=== PATIENT | female | born 1970 | race Caucasian/White ===

== ENCOUNTER 2021-12-04 10:31 | Emergency (ER) | payer MEDICAID, SELFPAY ==
[2021-12-04 10:31] VITALS: BP 121/87; PULSE 87; RESP 18; TEMP 36.9; O2SAT 97; BMI 43.8
--- NOTE | 2021-12-04 10:58 | EDS_ITS ---
HPI History of Present Illness Chief Complaint: Back Informant: patient Narrative Narrative: Patient states that on Monday she was in a grocery store holding onto a cart. She twisted and got pain that started in her back and shot down the back of her right leg. She states she did not fall. She caught herself on the cart. But ever since then she has had pain. She was seen earlier in the week at [facility]. She was given [place]. She states it helped a little bit with the pain but it comes right back. She has never had bowel or bladder dysfunction. She has no weakness although sitting up causes a lot of pain and is therefore hard. She went for a drive yesterday. After sitting in the car and driving she had pain shooting down her right leg. She cannot tell me where in the leg it went she cannot tell me how far down it went. Occasionally she still gets shooting pain but again she is not sure exactly where in the right leg it goes. She is not getting weakness or numbness. She states if she lays on her back she has no pain in the back or the leg. But it is worse if she is up walking around. She has not had any swelling. No recent fevers chills. No history of cancer or chemotherapy. No recent infections or antibiotic use. No dental pain. No history of significant prior back problems or back surgeries. [facility] Medical History Cholecystectomy planned Graves disease Hyperthyroidism Renal tubular acidosis Home Medications cholecalciferol (vitamin D3) [Vitamin D3] 50 mcg PO DAILY 12/04/21 [History Last Taken Unknown] [id number] [Sinus Allergy] 1 cap PO DAILY 12/04/21 [History Last Taken Unknown] cyclobenzaprine 10 mg PO BID PRN #10 tab 12/04/21 [Rx Last Taken Unknown] hydroxychloroquine 200 mg PO DAILY 12/04/21 [History Last Taken Unknown] levothyroxine 125 mcg PO DAILY 12/04/21 [History Last Taken Unknown] oxycodone-acetaminophen [Percocet] 1 tab PO Q4H PRN 12/04/21 [History Last Taken Unknown] oxycodone-acetaminophen [Percocet] 1 tab PO Q6H PRN 3 Days #10 tab 12/04/21 [Rx Last Taken Unknown] prednisone 60 mg PO DAILY #15 tab 12/04/21 [Rx Last Taken Unknown] sodium bicarbonate 1,300 mg PO DAILY 12/04/21 [History Last Taken Unknown] Allergy/AdvReac Type Severity Reaction Status Date / Time aspirin Allergy Anaphylaxis Verified 12/04/21 10:37 ciprofloxacin [From Cipro] Allergy Hives Verified 12/04/21 10:37 sulfamethoxazole Allergy Other Verified 12/04/21 10:37 [From Bactrim] trimethoprim [From Bactrim] Allergy Other Verified 12/04/21 10:37 meloxicam AdvReac Other Verified 12/04/21 10:44 Surgical History History of carpal tunnel surgery History of ear surgery History of partial hysterectomy Hx of section Social History Smoking Status: Current every day smoker tobacco type: cigarettes ROS ROS ED Constitutional Constitutional ED: Denies chills, fever(s) or sweats ENT ENT ED: Denies rhinorrhea or sore throat Cardiovascular Cardiovascular: Denies chest pain or palpitations Respiratory/Chest Respiratory/Chest: Denies dyspnea Gastrointestinal Gastrointestinal: Denies abdominal pain, constipation, diarrhea, melena, nausea or vomiting Genitourinary Genitourinary ED: Denies dysuria, hematuria or urinary frequency Musculoskeletal Musculoskeletal: Reports back pain; Denies neck pain Integumentary Denies abscess or rash Neurologic Neurologic: Reports other Details: See history of present illness regarding radicular pain on the right. ; Denies weakness Psychiatric Psychiatric: Denies depression Endocrine Endocrinology: Denies polydipsia or polyuria Hematologic/Lymphatic Hematologic/Lymphatic: Denies easy bleeding or easy bruising Allergic/Immunologic Allergic/Immunologic ED: Denies urticaria EXAM Physical Exam Const Vital Signs: 12/04/21 10:31 Temperature 98.5 F Temperature Source Oral Pulse Rate 87 Respiratory Rate 18 Blood Pressure 121/87 H Blood Pressure Mean 98 Pulse Ox 97 Oxygen Delivery Method Room Air Positive well nourished, well developed and obese Constitutional Narrative: Patient is lying comfortably in bed. She states she has almost no pain when she is laying back in bed. General Appearance ED: well developed and NAD Nutritional Appearance: obese HEENT Negative for trauma Eyes General Eye ED: Negative for pale conjunctiva or scleral icterus Neck no JVD Resp normal respiratory effort and clear to auscultation bilaterally Cardio regular rate and regular rhythm GI normal to inspection, nondistended, normoactive bowel sounds, soft to palpation and non-tender Back/Spine Back/Spine Narrative: Mild nonfocal lower lumbar tenderness. She does have some tenderness along the right buttock area/sciatic notch. Extremity normal to inspection General Extremety ED: Negative for edema or tenderness General Extremity: Negative for edema Neuro oriented x3 Neuro Narrative: No gross sensory or motor deficit. It is painful for her to move and lift either leg. But it hurts in her back. Her sensation is intact. There is no sign of weakness of quadriceps or calf muscles. Sensorium / Orientation: alert Skin no rashes or lesions noted MDM MDM MDM Narrative Medical decision making narrative: I explained to the patient that she really has no red flags of back pain. There is really no indication for x-rays. I will give her meds for pain. I will give her muscle relaxants. Because she has been trying other meds for 5 days without benefit I will try a course of steroids. I explained that this is not a quick fix. This will take several days to start turning around. She should maintain mobility. She should not start twisting her range of motion yet. If she develops weakness bowel or bladder dysfunction, fevers or other concerning findings she should return. Discharge Plan Triage Chief Complaint: Back ED Provider: Peña Chen Dx/Rx/DC Orders Clinical Impression: Acute lumbar myofascial strain, Acute lumbar radiculopathy Instructions: ED Back Sprain/Strain Prescriptions: New prednisone 20 MG tablet 60 mg PO DAILY Qty: 15 RF: 0 oxycodone-acetaminophen [Percocet] 5-325 mg tablet 1 tab PO Q6H PRN (Reason: pain) 3 Days Qty: 10 RF: 0 cyclobenzaprine 10 mg tablet 10 mg PO BID PRN (Reason: muscle spasm) Qty: 10 RF: 0 No Action sodium bicarbonate 650 mg Tablet 1,300 mg PO DAILY RF: 0 hydroxychloroquine 200 mg Tablet 200 mg PO DAILY RF: 0 cholecalciferol (vitamin D3) [Vitamin D3] 50 mcg (2,000 unit) Capsule 50 mcg PO DAILY RF: 0 levothyroxine 125 mcg Capsule 125 mcg PO DAILY RF: 0 Sinus Allergy Capsule 1 cap PO DAILY RF: 0 oxycodone-acetaminophen [Percocet] 5-325 mg Tablet 1 tab PO Q4H PRN (Reason: Pain) RF: 0 Activity Restrictions/Additional Instructions: Follow-up with your primary physician, Dr. Du at [facility] early this coming week. Disposition Disposition: Home, Self Care
[2021-12-04] MEDS: Morphine 4 MG/ML Syringe IV (11:08)
[2021-12-04] MEDS: Orphenadrine 60 MG/2 ML Ampul IM (11:08)
[2021-12-04] MEDS: predniSONE 20 MG Tablet 60 MG PO (11:08)
[2021-12-04 11:44] VITALS: BP 129/96; PULSE 89; O2SAT 99
== END 2021-12-04 11:44 | disposition home or self-care (01) ==
LOC: ED 11:23
PROVIDERS: Emergency Provider Emergency Medicine; Visit Provider Emergency Medicine
DX: S39.012A Strain of muscle, fascia and tendon of lower back, initial encounter (principal); M54.16 Radiculopathy, lumbar region; F17.210 Nicotine dependence, cigarettes, uncomplicated; X50.1XXA Overexertion from prolonged static or awkward postures, initial encounter; Y93.89 Activity, other specified; Y99.9 Unspecified external cause status; Y92.512 Supermarket, store or market as the place of occurrence of the external cause; E05.00 Thyrotoxicosis with diffuse goiter without thyrotoxic crisis or storm; E05.90 Thyrotoxicosis, unspecified without thyrotoxic crisis or storm; Z79.899 Other long term (current) drug therapy; Z79.890 Hormone replacement therapy
CPT/HCPCS: 96372; 96374; 99285